=== PATIENT | female | born 1935 | race African-American/Black ===

== ENCOUNTER 2016-09-20 14:33 | Emergency (ER) | payer MEDICARE, BC ==
[~2016-09-20] VITALS: Ht 162.6 cm; Wt 82.0 kg
[~2016-09-20 14:33] MED LIST: AMLO1TAB37 PO; GABA-531 PO; LEFL20TA17 PO; LOVA40TA73 PO; OMEP40CA34 PO; SULF500T46 PO; TRAM50TA PO
[2016-09-20 16:06] LABS: BASOPHILS % 0.6 % (0.0-2.0); EOSINOPHILS % 7.5 % (0.0-5.0); HEMATOCRIT. 35.6 % (36.0-48.0); HEMOGLOBIN. 11.5 g/dL (12.0-16.0); LYMPHOCYTES % 22.9 % (20.0-50.0); MEAN CORPUSCULAR HGB CONC 32.3 g/dL (31.0-37.0); MEAN CORPUSCULAR VOLUME 99.1 fL (81.0-99.0); MEAN PLATELET VOLUME 8.4 fl (7.4-10.4); MONOCYTES % 8.4 % (2.0-8.0); NEUTROPHILS % 60.6 % (40.0-76.0); PLATELET 192 x1000/uL (130-400); RED BLOOD CELL COUNT 3.59 mill/uL (4.2-5.4); RED CELL DISTRIBUTION WIDTH 14.6 % (11.6-14.6); WHITE BLOOD COUNT 6.3 x1000/uL (4.5-11.0)
[2016-09-20 16:10] LABS: PROTHROMBIN TIME 10.5 sec
[2016-09-20 16:17] LABS: ALANINE AMINOTRANSFERASE 24 IU/L (13-61); ALBUMIN 3.6 g/dL (3.4-5.0); ANION GAP 9; CALCIUM 8.7 mg/dL (8.5-10.1); CARBON DIOXIDE 31 mEq/L (21-32); CHLORIDE 108 mEq/L (98-107); INDEX HEMOLYSI 1 (1-3); INDEX ICTERIC 1 (1-4); INDEX LIPEMIC 1 (1-3); UREA NITROGEN BLOOD 11 mg/dL (7-21); eGFR > 60 mL/min (>60)
[2016-09-20 18:06] VITALS: BP 125/72
== END 2016-09-20 18:07 | disposition home or self-care (01) ==
LOC: ER 15:53
DX: R04.0 Epistaxis (principal); I10 Essential (primary) hypertension; Z88.5 Allergy status to narcotic agent; Z79.1 Long term (current) use of non-steroidal anti-inflammatories (NSAID); Z79.899 Other long term (current) drug therapy; Z90.49 Acquired absence of other specified parts of digestive tract; Z90.710 Acquired absence of both cervix and uterus
CPT/HCPCS: 36415; 80053; 85025; 85610; 99284

== ENCOUNTER → 2017-02-15 | Outpatient (CLI) | payer MEDICARE, BC ==
[~2017-02-15] MED LIST changes: +AMLO1TAB36 PO; -AMLO1TAB37 PO
== END | disposition home or self-care (01) ==
LOC: MAMMO 11:05
PROVIDERS: ATTEND Specialist
DX: Z12.31 Encounter for screening mammogram for malignant neoplasm of breast (principal)
CPT/HCPCS: G0202

== ENCOUNTER → 2017-07-11 | Outpatient (CLI) | payer MEDICARE, BC | END | disposition home or self-care (01) | LOC: US 09:11 | PROVIDERS: ATTEND Obstetrics & Gynecology Obstetrics | DX: N64.3 Galactorrhea not associated with childbirth (principal) | CPT/HCPCS: 76642 ==

== ENCOUNTER 2018-07-11 08:40 | Inpatient (IN) | payer MEDICARE, BC, MEDICAID ==
[~2018-07-11] VITALS: Ht 162.6 cm; Wt 94.0 kg
[~2018-07-11 08:40] MED LIST changes: +FUROSEMIDE
[2018-07-11] MEDS ORDERED: SODIUM CHLORIDE 0.9% 1000ML BAG (SEPSIS BOLUS) IV ONE (09:15)
[2018-07-11 09:25] LABS: BASOPHILS % 1.3 % (0.0-2.0); EOSINOPHILS % 2.3 % (0.0-5.0); HEMATOCRIT. 43.1 % (36.0-48.0); HEMOGLOBIN. 14.3 g/dL (12.0-16.0); LYMPHOCYTES % 15.5 % (20.0-50.0); MEAN CORPUSCULAR HEMOGLOBIN 32.7 pg (28.0-32.0); MEAN CORPUSCULAR VOLUME 98.6 fL (81.0-99.0); MEAN PLATELET VOLUME 9.5 fl (7.4-10.4); NEUTROPHILS % 69.9 % (40.0-76.0); PLATELET 193 x1000/uL (130-400); RED BLOOD CELL COUNT 4.37 mill/uL (4.2-5.4); RED CELL DISTRIBUTION WIDTH 15.1 % (11.6-14.6)
[2018-07-11 09:30] LABS: CHLORIDE 106 mEq/L (98-107)
[2018-07-11 09:33] LABS: PARTIAL THROMBOPLASTIN TIME 25.6 sec (23.4-31.0); PROTHROMBIN TIME 10.1 sec (9.1-11.1)
[2018-07-11] MEDS ORDERED: KCL 10MEQ/50ML PREMIX 50 ML IV ONE (10:15)
[2018-07-11 11:14] LABS: CLARITY URINE CLEAR (CLEAR); COLOR URINE YELLOW (YELLOW); KETONES URINE NEGATIVE (NEGATIVE); LEUKOCYTE ESTERASE URINE 1+ (NEGATIVE); NITRITE URINE NEGATIVE (NEGATIVE); OCCULT BLOOD URINE NEGATIVE (NEGATIVE); PROTEIN URINE NEGATIVE (NEGATIVE); SPECIFIC GRAVITY URINE 1.006 (1.005-1.030); UROBILINOGEN URINE 0.2 E.U./dL (0.2-1.0)
[2018-07-11] MEDS ORDERED: CEFTRIAXONE 1 G PREMIX 50 ML IV ONE (12:15)
[2018-07-11] MEDS ORDERED: ONDANSETRON HCL 4MG/2ML INJ IV ONE (13:00)
[2018-07-11] MEDS ORDERED: AMLODIPINE 10MG TABLET PO SCH (13:00)
[2018-07-11] MEDS ORDERED: IPRATROPIUM/ALBUTEROL 0.5-3(2.5)MG/3ML NEB INH PRN (13:00)
[2018-07-11] MEDS ORDERED: CLONIDINE 0.1MG TABLET PO PRN (13:00)
[2018-07-11] MEDS ORDERED: MAGNESIUM/ALUMINUM HYDROXIDE/SIMETHICONE 30ML UDC PO PRN (13:00)
[2018-07-11] MEDS ORDERED: DOCUSATE SODIUM 100MG CAPSULE PO PRN (13:00)
[2018-07-11] MEDS ORDERED: DIPHENHYDRAMINE 50MG/ML VIAL IV PRN (13:00)
[2018-07-11] MEDS ORDERED: ONDANSETRON HCL 4MG/2ML INJ IV PRN (13:00)
[2018-07-11] MEDS ORDERED: ACETAMINOPHEN 650MG/20.3ML UDC GT PRN (13:00)
[2018-07-11] MEDS ORDERED: GUAIFENESIN 200MG/10ML SUGAR FREE UDC PO PRN (13:00)
[2018-07-11 16:00] VITALS: BP 164/78
[2018-07-11 16:45] VITALS: BP 160/71
[2018-07-11] MEDS ORDERED: POTASSIUM CHLORIDE INJ 40 MEQ in DEXT 5% WATER 250 ML IV NR (18:00)
[2018-07-11] MEDS: LOSARTAN POTASSIUM 50 MG TABLET PO SCH (18:26)
[2018-07-11 20:00] VITALS: BP 135/72
[2018-07-11] MEDS: AMLODIPINE 5MG TABLET PO SCH (21:33)
[2018-07-12] VITALS: BP 142/68
[2018-07-12 04:00] VITALS: BP 129/65
[2018-07-12 07:17] LABS: BASOPHILS % 1.5 % (0.0-2.0); EOSINOPHILS % 2.5 % (0.0-5.0); HEMATOCRIT. 37.6 % (36.0-48.0); HEMOGLOBIN. 12.5 g/dL (12.0-16.0); LYMPHOCYTES % 18.5 % (20.0-50.0); MEAN CORPUSCULAR VOLUME 99.1 fL (81.0-99.0); MEAN PLATELET VOLUME 9.4 fl (7.4-10.4); MONOCYTES % 9.9 % (2.0-8.0); NEUTROPHILS % 67.6 % (40.0-76.0); PLATELET 165 x1000/uL (130-400); RED CELL DISTRIBUTION WIDTH 15.1 % (11.6-14.6)
[2018-07-12 07:42] LABS: CHLORIDE 112 mEq/L (98-107)
[2018-07-12 07:56] LABS: LDL CHOLESTEROL 101 mg/dL (5-100)
[2018-07-12 07:57] LABS: HDL CHOLESTEROL 48 mg/dL (40-59)
[2018-07-12 08:00] VITALS: BP 152/72
[2018-07-12] MEDS ORDERED: POTASSIUM CHLORIDE 20MEQ TABLET SR PO NR (08:15)
[2018-07-12] MEDS: LOSARTAN POTASSIUM 50 MG TABLET PO SCH (09:18)
[2018-07-12] MEDS: AMLODIPINE 5MG TABLET PO SCH ×2 (09:18→20:52)
[2018-07-12] MEDS ORDERED: TRAMADOL 50MG TABLET PO PRN (11:30)
[2018-07-12 12:00] VITALS: BP 142/77
[2018-07-12 16:21] VITALS: BP 99/72
[2018-07-12 20:00] VITALS: BP 128/66
[2018-07-12] MEDS: TRAMADOL 50MG TABLET PO PRN (20:57)
[2018-07-13] VITALS (7 sets, daily range): BP systolic 104–141; BP diastolic 47–80
[2018-07-13] MEDS: TRAMADOL 50MG TABLET PO PRN ×3 (03:55→20:57)
[2018-07-13 08:10] LABS: BASOPHILS % 2.1 % (0.0-2.0); EOSINOPHILS % 4.1 % (0.0-5.0); HEMATOCRIT. 32.1 % (36.0-48.0); HEMOGLOBIN. 10.7 g/dL (12.0-16.0); LYMPHOCYTES % 29.4 % (20.0-50.0); MEAN CORPUSCULAR HEMOGLOBIN 33.1 pg (28.0-32.0); MEAN CORPUSCULAR VOLUME 99.4 fL (81.0-99.0); MEAN PLATELET VOLUME 9.4 fl (7.4-10.4); MONOCYTES % 10.8 % (2.0-8.0); NEUTROPHILS % 53.6 % (40.0-76.0); PLATELET 157 x1000/uL (130-400); RED BLOOD CELL COUNT 3.23 mill/uL (4.2-5.4); RED CELL DISTRIBUTION WIDTH 15.2 % (11.6-14.6)
[2018-07-13 08:30] LABS: CHLORIDE 109 mEq/L (98-107)
[2018-07-13] MEDS: LOSARTAN POTASSIUM 50 MG TABLET PO SCH (09:27)
[2018-07-13] MEDS: AMLODIPINE 5MG TABLET PO SCH ×2 (09:28→20:58)
[2018-07-14] VITALS: BP 135/68
[2018-07-14 04:00] VITALS: BP 126/65
[2018-07-14] MEDS: TRAMADOL 50MG TABLET PO PRN (05:24)
[2018-07-14 07:42] VITALS: BP 136/69
[2018-07-14 08:00] VITALS: BP 139/62
[2018-07-14 08:00] LABS: BASOPHILS % 1.8 % (0.0-2.0); EOSINOPHILS % 4.7 % (0.0-5.0); HEMATOCRIT. 35.3 % (36.0-48.0); HEMOGLOBIN. 11.7 g/dL (12.0-16.0); LYMPHOCYTES % 18.4 % (20.0-50.0); MEAN CORPUSCULAR HEMOGLOBIN 33.1 pg (28.0-32.0); MEAN CORPUSCULAR VOLUME 99.9 fL (81.0-99.0); MEAN PLATELET VOLUME 9.6 fl (7.4-10.4); MONOCYTES % 9.3 % (2.0-8.0); NEUTROPHILS % 65.8 % (40.0-76.0); PLATELET 153 x1000/uL (130-400); RED BLOOD CELL COUNT 3.53 mill/uL (4.2-5.4); RED CELL DISTRIBUTION WIDTH 14.9 % (11.6-14.6)
[2018-07-14 08:08] LABS: CHLORIDE 109 mEq/L (98-107)
== END 2018-07-14 08:55 | disposition home or self-care (01) | DRG 392 ==
LOC: ER 08:55 → 8WST 12:43 → ENRESERV 13:06
PROVIDERS: ADMIT Family Medicine Adult Medicine; ATTEND Family Medicine Adult Medicine
DX: K52.9 Noninfective gastroenteritis and colitis, unspecified (principal); E87.0 Hyperosmolality and hypernatremia; E87.6 Hypokalemia; I11.0 Hypertensive heart disease with heart failure; I25.10 Atherosclerotic heart disease of native coronary artery without angina pectoris; I50.9 Heart failure, unspecified; J44.9 Chronic obstructive pulmonary disease, unspecified; M06.9 Rheumatoid arthritis, unspecified; Z82.49 Family history of ischemic heart disease and other diseases of the circulatory system; Z87.440 Personal history of urinary (tract) infections; Z90.710 Acquired absence of both cervix and uterus; Z88.5 Allergy status to narcotic agent
CPT/HCPCS: 36415; 71045; 80048; 80061; 82962; 83605; 83735; 83880; 84145; 84443; 84484; 87015; 87045; 87427; 87449; 87493; 87804; 89055; 93005; 93306; 93970; 96361; 96374; 96375; 97162; 99285; J0696; J2405; J3480; J7030; J7050; J7060

== ENCOUNTER → 2021-12-01 | Outpatient (CLI) | payer MEDICARE, BC, MEDICAID ==
[~2021-12-01] MED LIST changes: -GABA-531 PO; +GABA-532 PO; +OMEP40CA20 PO; -OMEP40CA34 PO
== END | disposition home or self-care (01) ==
LOC: RAD 12:49
PROVIDERS: ATTEND Specialist
DX: J18.9 Pneumonia, unspecified organism (principal)
CPT/HCPCS: 71045

== ENCOUNTER → 2022-10-19 | Outpatient (CLI) | payer MEDICARE, BC, MEDICAID | END | disposition home or self-care (01) | LOC: RAD 11:13 | PROVIDERS: ATTEND Internal Medicine | DX: M19.032 Primary osteoarthritis, left wrist (principal); M19.031 Primary osteoarthritis, right wrist; M85.842 Other specified disorders of bone density and structure, left hand; M85.841 Other specified disorders of bone density and structure, right hand; M18.12 Unilateral primary osteoarthritis of first carpometacarpal joint, left hand; M17.0 Bilateral primary osteoarthritis of knee; M85.88 Other specified disorders of bone density and structure, other site; M51.36 Other intervertebral disc degeneration, lumbar region; M46.1 Sacroiliitis, not elsewhere classified | CPT/HCPCS: 73110; 73120; 73502; 73560 ==